=== PATIENT | female | born 1995 | race Caucasian/White ===

== ENCOUNTER 2022-03-06 13:17 | Inpatient (IN) ==
[2022-03-06 14:49] LABS: Basophils % 0.3 %; Eosinophils % 0.6 %; Hematocrit 47.8 % (35.3-44.9); Hemoglobin 15.2 g/dL (11.5-15.4); Immature Granulocytes % 0.3 % (0-4); Lymphocytes # 1.6 K/mcL (0.6-4.6); Lymphocytes % 24.6 %; Mean Corpuscular HGB Conc 31.8 g/dL (31.6-35.5); Mean Corpuscular Hemoglobin 26.5 pg (28.0-33.3); Mean Corpuscular Volume 83.4 fL (83.0-100.0); Mean Platelet Volume 11.3 fL (9.4-12.4); Monocytes # 0.3 K/mcL (0.0-1.3); Monocytes % 4.7 %; Neutrophils # 4.4 K/mcL (1.6-8.9); Platelet Count 298 K/mcL (140-400); Red Blood Count 5.73 M/mcL (3.82-4.97); Segmented Neutrophils % 69.5 %; White Blood Count 6.3 K/mcL (4.3-11.1)
[2022-03-06 14:56] LABS: Acetaminophen < 10 mcg/mL (10-20); BUN/Creatinine Ratio 11 (6-26); Blood Urea Nitrogen 9 mg/dL (6-20); Calcium 9.3 mg/dL (8.6-10.3); Carbon Dioxide 22 mEq/L (23-29); Chloride 106 mEq/L (98-107); Chol/HDL Ratio 3.6 (0-4.9); Cholesterol 133 mg/dL (< 200); Ethanol < 10 mg/dL (Less than 10); Glucose 132 mg/dL (70-105); HDL Cholesterol 37 mg/dL (40-59); LDL Cholesterol,Calculated 68 mg/dL (< 100); Osmolality,Calculated 285 (280-300); Potassium 3.9 mEq/L (3.5-5.1); Salicylate < 2.5 mg/dL (15.0-30.0); Sodium 137 mEq/L (136-145); Triglycerides 139 mg/dL (< 150); eGFR For African Americans > 60 (> 60); eGFR For Non-African Americans > 60 (> 60)
[2022-03-06 15:00] LABS: Bacteria,Urine Few per hpf (None-Few); Bilirubin,Urine Negative (Negative); Blood,Urine Large (Negative); Clarity,Urine Turbid (Clear); Color,Urine Yellow (Yellow); Glucose,Urine (UA) Normal (Normal); Hyaline Casts,Urine Few per lpf (None Seen); Ketones,Urine Negative (Negative); Leukocyte Esterase,Urine Small (Negative); Mucus,Urine Few per lpf (None-Few); Nitrite,Urine Negative (Negative); Protein,Urine 70 mg/dL (Neg-Trace); RBC,Urine 0-3 per hpf (0-3); Specific Gravity,Urine 1.023 (1.010-1.025); Squamous Epithelial Cell,Urine Moderate per hpf (None-Few)
[2022-03-06 15:07] LABS: Amphetamine Screen,Urine Negative ng/mL (Cutoff=1000); Barbiturate Screen,Urine Negative ng/mL (Cutoff=200); Benzodiazepines Screen,Urine Negative ng/mL (Cutoff=200); Cannabinoid Screen,Urine Negative ng/mL (Cutoff = 50); Cocaine Screen,Urine Negative ng/mL (Cutoff= 300); Opiate Screen,Urine Negative ng/mL (Cutoff=300); Phencyclidine Screen,Urine Negative ng/mL (Cutoff=25)
[2022-03-06] MEDS ORDERED: Lidocaine -MPF 1% 2 ML VIAL INFILT ONE (15:08)
[2022-03-06] MEDS ORDERED: Tdap (Boostrix) Vaccine 0.5 ML SYRINGE IM ONE (15:08)
[2022-03-06] MEDS ORDERED: Lidocaine 1% 20 ML MDV INFILT ONE (15:14)
[2022-03-06 15:46] LABS: Estimated Average Glucose 111 mg/dl; Hemoglobin A1C 5.5 %
[2022-03-06 20:08] LABS: Influenza A PCR Positive (Negative); Influenza B PCR Negative (Negative); Resp. Syncytial Virus PCR Negative (Negative); SARS-CoV-2 by PCR (In House) Negative (Negative)
[2022-03-06] MEDS ORDERED: MOM Conc 10 ML UD.LIQ PO PRN (21:36)
[2022-03-06] MEDS ORDERED: Haloperidol Lactate 5 MG/ML VIAL IM PRN (21:36)
[2022-03-06] MEDS ORDERED: *HR* LORazepam 2 MG/ML VIAL IM PRN (21:36)
[2022-03-06] MEDS ORDERED: *HR* LORazepam 1 MG TABLET PO PRN (21:36)
[2022-03-06] MEDS ORDERED: Acetaminophen 325 MG TABLET PO PRN (21:36)
[2022-03-06] MEDS ORDERED: hydrOXYzine pamoate 25 MG CAPSULE PO PRN (21:36)
[2022-03-06] MEDS ORDERED: haloperidoL 5 MG TABLET PO PRN (21:36)
[2022-03-06] MEDS ORDERED: Mag Hydrox/Al Hydrox/Simeth 30 ML UDC PO PRN (21:36)
[2022-03-06] MEDS: QUEtiapine Fumarate 25 MG TABLET PO PRN (23:27)
[2022-03-08] MEDS ORDERED: Benzonatate 100 MG CAPSULE PO PRN (09:13)
[2022-03-09] MEDS: QUEtiapine Fumarate 25 MG TABLET PO PRN (20:15)
[2022-03-13] MEDS: QUEtiapine Fumarate 25 MG TABLET PO PRN (22:05)
[2022-03-14 10:33] VITALS: BP 142/85; PULSE 83; TEMP 97.6; O2SAT 92
== END 2022-03-14 12:35 | disposition home or self-care (01) | DRG 751 ==
LOC: EMEROOARM 13:17 → 1ANU 21:09
PROVIDERS: ADMIT Psychiatry & Neurology Neurology; ATTEND Psychiatry & Neurology Neurology